=== PATIENT | male | born 1980 | race Caucasian/White ===

== ENCOUNTER 2017-06-10 21:17 | Emergency (ER) | payer OTHER ==
[~2017-06-10] VITALS: Ht 180.3 cm; Wt 81.8 kg
[2017-06-10] MEDS ORDERED: KETOROLAC 30 MG/ML VIAL (J1885) IV ONE (22:00)
[2017-06-10] MEDS ORDERED: NS 1,000 ML IV ONE (22:00)
[2017-06-10] MEDS ORDERED: ONDANSETRON 4MG/2ML VIAL (J2405) IV ONE (22:00)
[2017-06-10 22:28] LABS: BASO # 0.1 10^3/uL (0.0-0.2); BASO % 0.5 % (0.0-1.0); EOS % 0.3 % (0.0-3.0); IMMATURE GRANULOCYTE % 0.4 % (0-0); LYMPH # 1.2 10^3/uL (1.5-4.5); LYMPH % 9.8 % (24.0-44.0); MEAN CORPUSCULAR HEMOGLOBIN 31.1 pg (27.0-33.0); MONO # 0.7 10^3/uL (0.0-0.8); MONO % 5.6 % (0.0-5.0); NEUTROPHILS # 10.4 10^3/uL (1.8-7.7); NEUTROPHILS % 83.4 % (36.0-66.0); PLATELET COUNT, AUTOMATED 328 10^3/uL (150-450); RED CELL DISTRIBUTION WIDTH 12.9 % (11.5-14.5); WHITE BLOOD COUNT 12.5 10^3/uL (4.0-10.0)
--- NOTE | 2017-06-10 22:36 | REP ---
Clinical: Acute left flank pain. Technique: Axial noncontrast images from the lung bases to the pubic symphysis with coronal and sagittal re-formations. Comparison: None. Findings: Mild acute left-sided obstructive uropathy with perinephric stranding and hydroureteronephrosis secondary to a 3 mm calculus at the ureterovesicle junction nearly passing into the bladder. 1 mm nonobstructing left calculus identified and normal appearance to the right kidney/ureter. Liver, spleen, pancreas, gallbladder, and bilateral adrenal glands are normal. The enteric system is without obstruction or acute inflammatory process. Normal terminal ileum and appendix identified in the right lower quadrant. Sigmoid diverticula noted without acute diverticulitis. This demonstrates collapsed bladder with above-mentioned 3 mm calculus at the left ureterovesicle junction/trigone. Age appropriate prostate and seminal vesicles are identified. No pelvic fluid. No ascites. No free air. No significant adenopathy. Abdominal aorta without aneurysm. Surrounding musculoskeletal structures are intact. Lung bases are clear. Impression: Mild acute left-sided obstructive uropathy with a 3 mm calculus at the verge of the ureterovesicle junction nearly passing into the bladder. 1 mm nonobstructing left renal calculus. Normal right kidney/ureter without stone or hydronephrosis. Signed by Paolo Schafer MD 06/10/2017 10:28 P
[2017-06-10 22:46] LABS: ANION GAP 8 MEQ/L (8-16); BLOOD UREA NITROGEN 15 MG/DL (7-18); CALCIUM LEVEL 8.6 MG/DL (8.5-10.1); CARBON DIOXIDE LEVEL 23 MEQ/L (21-32); CHLORIDE LEVEL 107 MEQ/L (98-107); CREATININE FOR GFR 1.06 MG/DL (0.70-1.30); GLOMERULAR FILTRATION RATE > 60.0 (>60); GLUCOSE, FASTING 113 MG/DL (70-105); POTASSIUM SERUM 4.1 MEQ/L (3.5-5.1); SODIUM LEVEL 138 MEQ/L (136-145)
[2017-06-10] MEDS ORDERED: MORPHINE 4 MG/ML 1ML SYRINGE IV ONE (23:00)
[2017-06-10] MEDS ORDERED: PERC5TAB12 PO ×2 (23:16→23:19)
[2017-06-10] MEDS ORDERED: ZOFR4TAB3 PO ×2 (23:16→23:19)
[2017-06-10] MEDS ORDERED: FLOM5CAP PO ×2 (23:16→23:19)
[2017-06-10] MEDS ORDERED: ONDANSETRON 4 MG ORAL DISINTEGRATING TAB (S0181) PO ONE (23:30)
[2017-06-10] MEDS ORDERED: OXYCODONE/APAP 5MG/325MG(BULK FOR ED) 1 TABLET PO ONE (23:30)
[2017-06-10 23:37] VITALS: BP 140/87
== END 2017-06-10 23:38 | disposition home or self-care (01) ==
LOC: M ED 21:17
DX: N20.0 Calculus of kidney (principal); Z87.891 Personal history of nicotine dependence
CPT/HCPCS: 74176; 80048; 81001; 85025; 96374; 96375; 99284; J1885; J2405